=== PATIENT | female | born 1950 | race Caucasian/White ===

== ENCOUNTER 2022-07-04 10:39 | Inpatient (IN) | payer MEDICARE ==
[~2022-07-04] VITALS: Ht 149.9 cm; Wt 124.0 kg
[2022-07-04 13:57] VITALS: BP 139/65
[2022-07-04] MEDS ORDERED: GLUCOSE 4GM CHEW TABLET PO PRN (14:15)
[2022-07-04] MEDS ORDERED: GLUCAGON INJ 1MG VIAL SC PRN (14:15)
[2022-07-04] MEDS ORDERED: DEXTROSE 50% 50ML SYRINGE IV PRN (14:15)
[2022-07-04 14:47] LABS: HEMATOCRIT 33.6 % (36.0-47.0); HEMOGLOBIN 10.7 g/dl (12.0-15.5); MEAN CORPUSCULAR HEMOGLOBIN 31.3 pg (27.0-33.0); MEAN CORPUSCULAR HGB CONC 31.8 g/dl (32.0-36.5); MEAN CORPUSCULAR VOLUME 98.2 fl (80.0-96.0); PLATELET COUNT, AUTOMATED 194 10^3/uL (150-450); RED BLOOD COUNT 3.42 10^6/uL (4.00-5.40)
[2022-07-04 14:56] LABS: WHITE BLOOD COUNT 31.2 10^3/uL (4.0-10.0)
[2022-07-04 15:00] LABS: INR 1.2; PROTHROMBIN TIME 15.5 SECONDS (12.5-14.5)
[2022-07-04] MEDS ORDERED: OMEP-173 PO (15:09)
[2022-07-04] MEDS ORDERED: GLIP5TAB20 PO (15:09)
[2022-07-04] MEDS ORDERED: MESA0.37 PO (15:09)
[2022-07-04] MEDS ORDERED: LOSA100T45 PO (15:09)
[2022-07-04] MEDS ORDERED: LEVOTAB10 PO (15:09)
[2022-07-04] MEDS ORDERED: FURO40TA2 PO (15:09)
[2022-07-04] MEDS ORDERED: NAPR-885 PO (15:09)
[2022-07-04] MEDS ORDERED: METO1TAB7 PO (15:09)
[2022-07-04] MEDS ORDERED: FLUTISP NARES (15:09)
[2022-07-04 15:10] LABS: ALBUMIN 2.7 G/DL (3.2-5.2); ALKALINE PHOSPHATASE 57 U/L (46-116); ALT/SGPT 37 U/L (7.0-40); AST/SGOT 27 U/L (<34); BILIRUBIN,TOTAL 0.4 MG/DL (0.3-1.2); BLOOD UREA NITROGEN 22 MG/DL (9-23); CARBON DIOXIDE LEVEL 23 MMOL/L (20-31); CHLORIDE LEVEL 106 MMOL/L (98-107); CREATININE FOR GFR 0.86 MG/DL (0.55-1.30); GLOMERULAR FILTRATION RATE > 60.0 (>39); GLUCOSE, FASTING 281 MG/DL (74-106); POTASSIUM SERUM 4.1 MMOL/L (3.5-5.1); SODIUM LEVEL 143 MMOL/L (136-145); TOTAL PROTEIN 5.5 G/DL (5.7-8.2)
[2022-07-04] MEDS ORDERED: D3 H10002 PO (15:11)
[2022-07-04] MEDS ORDERED: ASCO500T PO (15:11)
[2022-07-04] MEDS ORDERED: VENTAER INH (15:11)
[2022-07-04] MEDS ORDERED: HOME MED LIST COMPLETE! XX SCH (15:15)
[2022-07-04 15:26] LABS: LYMPHOCYTES 2 % (16-44); METAMYELOCYTES 4 % (0-0); MONOCYTES 3 % (0-5); MYELOCYTES 1 % (0-0); NEUTROPHILS 76 % (28-66); PLATELET ESTIMATE NORMAL (NORMAL)
[2022-07-04] MEDS ORDERED: LIDOCAINE 2% 100MG/5ML SDV (FOR ANES.) As Ordered ONE (15:54)
[2022-07-04] MEDS ORDERED: propofoL 200 MG/20 ML VIAL As Ordered ONE (15:54)
[2022-07-04] MEDS ORDERED: LR 1,000 ML IV ONE ×2 (16:10→21:30)
[2022-07-04] MEDS ORDERED: ALBUTEROL 90 MCG/ACT 8GM HFA INHALER INH PRN (16:20)
[2022-07-04] MEDS ORDERED: FLUTICASONE PROP 0.05% NASAL SPRAY 16 GM (FLONASE) NARES PRN (16:20)
[2022-07-04] MEDS: LOSARTAN 50MG TABLET PO SCH (16:57)
[2022-07-04] MEDS: OMEPRAZOLE 20MG CAP PO SCH (16:58)
[2022-07-04] MEDS: METOPROLOL SUCC (TopROL XL) 50MG **XL** TAB PO SCH (16:58)
[2022-07-04] MEDS: INSULIN LISPRO (NovoLOG) PER UNIT SC SCH ×2 (16:58→20:55)
[2022-07-04] MEDS: LR 1,000 ML IV SCH (17:02)
[2022-07-04] MEDS ORDERED: MIDAZOLAM INJ 2MG/2ML VIAL As Ordered ONE (17:41)
[2022-07-04] MEDS ORDERED: fentaNYL 100 MCG/2 ML INJECTION As Ordered ONE (17:41)
[2022-07-04] MEDS ORDERED: ISOVUE-300 61% 100ML VIAL As Ordered ONE (17:42)
[2022-07-04] MEDS ORDERED: fentaNYL 100 MCG/2 ML INJECTION IV PRN (18:45)
[2022-07-04] MEDS ORDERED: HYDROMORPHONE HCL 0.5 MG/ 0.5 ML SYRINGE IV PRN (18:45)
[2022-07-04] MEDS ORDERED: ONDANSETRON 4MG 2ML VIAL IV PRN (18:45)
[2022-07-04] MEDS ORDERED: oxyCODONE 5MG TAB PO PRN (18:45)
[2022-07-04 19:45] VITALS: BP 134/61
[2022-07-04 20:15] VITALS: BP 136/61
[2022-07-04] MEDS: RIVAROXABAN 10MG TAB (XARELTO) PO SCH (20:55)
[2022-07-04] MEDS: ALBUTEROL SULFATE 2.5MG/0.5ML INH NEB SOLN NEB PRN (21:12)
[2022-07-04 21:15] VITALS: BP 131/61
[2022-07-04 22:15] VITALS: BP 130/61
[2022-07-04 23:15] VITALS: BP 132/60
[2022-07-05 00:15] VITALS: BP 134/63
[2022-07-05] MEDS ORDERED: LACTATED RINGER'S 1000 ML IV ONE (01:25)
[2022-07-05] MEDS: LR 1,000 ML IV SCH (02:40)
[2022-07-05] MEDS: ALBUTEROL SULFATE 2.5MG/0.5ML INH NEB SOLN NEB PRN ×2 (02:49→08:10)
[2022-07-05] MEDS ORDERED: carisoprodoL 350 MG TAB PO PRN (02:50)
[2022-07-05] MEDS ORDERED: oxyCODONE 5MG TAB PO PRN (02:55)
[2022-07-05] MEDS ORDERED: KETOROLAC 30 MG/ML 1ML VIAL IV ONE (03:00)
[2022-07-05 05:51] LABS: HEMATOCRIT 32.3 % (36.0-47.0); HEMOGLOBIN 10.1 g/dl (12.0-15.5); MEAN CORPUSCULAR HEMOGLOBIN 31.2 pg (27.0-33.0); MEAN CORPUSCULAR HGB CONC 31.3 g/dl (32.0-36.5); MEAN CORPUSCULAR VOLUME 99.7 fl (80.0-96.0); RED BLOOD COUNT 3.24 10^6/uL (4.00-5.40); WHITE BLOOD COUNT 26.6 10^3/uL (4.0-10.0)
[2022-07-05 06:00] VITALS: BP 156/67
[2022-07-05 06:17] LABS: BLOOD UREA NITROGEN 29 MG/DL (9-23); CALCIUM LEVEL 7.3 MG/DL (8.3-10.6); CARBON DIOXIDE LEVEL 24 MMOL/L (20-31); CHLORIDE LEVEL 106 MMOL/L (98-107); CREATININE FOR GFR 0.93 MG/DL (0.55-1.30); GLOMERULAR FILTRATION RATE > 60.0 (>39); GLUCOSE, FASTING 193 MG/DL (74-106); POTASSIUM SERUM 4.6 MMOL/L (3.5-5.1); SODIUM LEVEL 139 MMOL/L (136-145)
[2022-07-05 07:43] LABS: PLATELET COUNT, AUTOMATED 124 10^3/uL (150-450)
[2022-07-05] MEDS ORDERED: ENOXAPARIN 40MG/0.4ML SYRINGE (J1650 PER 10MG) SC SCH (09:00)
[2022-07-05] MEDS: LIDOCAINE 5% (LIDODERM) PATCH TD SCH (09:00)
[2022-07-05] MEDS: OMEPRAZOLE 20MG CAP PO SCH (09:36)
[2022-07-05] MEDS: INSULIN LISPRO (NovoLOG) PER UNIT SC SCH ×4 (09:37→21:18)
[2022-07-05] MEDS: cefTRIAXone SOD 2 GM in D5W MINI-BAG PLUS 50 ML IV SCH (09:37)
[2022-07-05] MEDS: METOPROLOL SUCC (TopROL XL) 50MG **XL** TAB PO SCH (09:38)
[2022-07-05] MEDS: LOSARTAN 50MG TABLET PO SCH (09:38)
[2022-07-05] MEDS ORDERED: IPRATROPIUM 0.5MG/ALBUTEROL 2.5MG INH SOL UD 3ML (DUONEB) NEB PRN (10:40)
[2022-07-05] MEDS ORDERED: FUROSEMIDE 40MG/4ML VIAL IV ONE (11:00)
[2022-07-05] MEDS: predniSONE 20 MG TAB PO SCH (11:25)
[2022-07-05 12:00] VITALS: BP 172/83
[2022-07-05] MEDS: IPRATROPIUM 0.5MG/ALBUTEROL 2.5MG INH SOL UD 3ML (DUONEB) NEB SCH ×2 (13:22→19:07)
[2022-07-05 20:23] VITALS: BP 174/80
[2022-07-05] MEDS ORDERED: **hydrALAZINE** 10 MG TAB PO ONE (20:35)
[2022-07-05] MEDS: RIVAROXABAN 10MG TAB (XARELTO) PO SCH (21:18)
[2022-07-06] MEDS: IPRATROPIUM 0.5MG/ALBUTEROL 2.5MG INH SOL UD 3ML (DUONEB) NEB SCH ×5 (01:41→23:51)
[2022-07-06 06:23] LABS: HEMOGLOBIN 9.8 g/dl (12.0-15.5); MEAN CORPUSCULAR HEMOGLOBIN 31.5 pg (27.0-33.0); MEAN CORPUSCULAR HGB CONC 31.6 g/dl (32.0-36.5); MEAN CORPUSCULAR VOLUME 99.7 fl (80.0-96.0); PLATELET COUNT, AUTOMATED 186 10^3/uL (150-450); RED BLOOD COUNT 3.11 10^6/uL (4.00-5.40); WHITE BLOOD COUNT 24.1 10^3/uL (4.0-10.0)
[2022-07-06 06:54] LABS: BLOOD UREA NITROGEN 37 MG/DL (9-23); CARBON DIOXIDE LEVEL 28 MMOL/L (20-31); CHLORIDE LEVEL 104 MMOL/L (98-107); CREATININE FOR GFR 0.68 MG/DL (0.55-1.30); GLOMERULAR FILTRATION RATE > 60.0 (>39); GLUCOSE, FASTING 173 MG/DL (74-106); MAGNESIUM LEVEL 1.8 MG/DL (1.8-2.4); POTASSIUM SERUM 4.7 MMOL/L (3.5-5.1); SODIUM LEVEL 140 MMOL/L (136-145)
[2022-07-06 07:00] VITALS: BP 138/72
[2022-07-06] MEDS: cefTRIAXone SOD 2 GM in D5W MINI-BAG PLUS 50 ML IV SCH (07:59)
[2022-07-06 08:00] VITALS: BP 138/72
[2022-07-06] MEDS: METOPROLOL SUCC (TopROL XL) 50MG **XL** TAB PO SCH (08:00)
[2022-07-06] MEDS: INSULIN LISPRO (NovoLOG) PER UNIT SC SCH ×4 (08:00→20:24)
[2022-07-06] MEDS: OMEPRAZOLE 20MG CAP PO SCH (08:00)
[2022-07-06] MEDS: LOSARTAN 50MG TABLET PO SCH (08:01)
[2022-07-06] MEDS: predniSONE 20 MG TAB PO SCH (08:01)
[2022-07-06] MEDS: LIDOCAINE 5% (LIDODERM) PATCH TD SCH (08:02)
[2022-07-06] MEDS ORDERED: FUROSEMIDE 40 MG TAB PO SCH (09:00)
[2022-07-06] MEDS ORDERED: FUROSEMIDE 40MG/4ML VIAL IV ONE (11:00)
[2022-07-06] MEDS ORDERED: methylPREDNISolone 125MG 2ML VIAL IV ONE (11:00)
[2022-07-06 14:00] VITALS: BP 164/79
[2022-07-06 20:00] VITALS: BP 179/77
[2022-07-06] MEDS: methylPREDNISolone 40MG 1ML VIAL IV SCH (20:23)
[2022-07-06] MEDS: RIVAROXABAN 10MG TAB (XARELTO) PO SCH (20:23)
[2022-07-07] MEDS: methylPREDNISolone 40MG 1ML VIAL IV SCH ×4 (02:00→20:14)
[2022-07-07] MEDS: IPRATROPIUM 0.5MG/ALBUTEROL 2.5MG INH SOL UD 3ML (DUONEB) NEB SCH ×5 (03:19→19:56)
[2022-07-07 05:58] LABS: HEMATOCRIT 33.8 % (36.0-47.0); HEMOGLOBIN 10.6 g/dl (12.0-15.5); MEAN CORPUSCULAR HEMOGLOBIN 30.5 pg (27.0-33.0); MEAN CORPUSCULAR HGB CONC 31.4 g/dl (32.0-36.5); MEAN CORPUSCULAR VOLUME 97.4 fl (80.0-96.0); PLATELET COUNT, AUTOMATED 211 10^3/uL (150-450); RED BLOOD COUNT 3.47 10^6/uL (4.00-5.40); WHITE BLOOD COUNT 15.2 10^3/uL (4.0-10.0)
[2022-07-07 06:00] VITALS: BP 149/65
[2022-07-07] MEDS: LIDOCAINE 5% (LIDODERM) PATCH TD SCH (09:00)
[2022-07-07 09:03] LABS: BLOOD UREA NITROGEN 29 MG/DL (9-23); CALCIUM LEVEL 8.3 MG/DL (8.3-10.6); CARBON DIOXIDE LEVEL 30 MMOL/L (20-31); CHLORIDE LEVEL 101 MMOL/L (98-107); GLOMERULAR FILTRATION RATE > 60.0 (>39); GLUCOSE, FASTING 254 MG/DL (74-106); POTASSIUM SERUM 4.7 MMOL/L (3.5-5.1); SODIUM LEVEL 137 MMOL/L (136-145)
[2022-07-07] MEDS: INSULIN LISPRO (NovoLOG) PER UNIT SC SCH ×4 (09:21→20:15)
[2022-07-07] MEDS: cefTRIAXone SOD 2 GM in D5W MINI-BAG PLUS 50 ML IV SCH (09:22)
[2022-07-07] MEDS: OMEPRAZOLE 20MG CAP PO SCH (09:23)
[2022-07-07] MEDS: LOSARTAN 50MG TABLET PO SCH (09:23)
[2022-07-07] MEDS: METOPROLOL SUCC (TopROL XL) 50MG **XL** TAB PO SCH (09:23)
[2022-07-07] MEDS: TORSEMIDE 20 MG TAB PO SCH (09:24)
[2022-07-07 14:00] VITALS: BP 150/58
[2022-07-07] MEDS: RIVAROXABAN 10MG TAB (XARELTO) PO SCH (20:14)
[2022-07-07 22:00] VITALS: BP 142/78
[2022-07-08] MEDS: IPRATROPIUM 0.5MG/ALBUTEROL 2.5MG INH SOL UD 3ML (DUONEB) NEB SCH ×5 (00:26→15:21)
[2022-07-08] MEDS: methylPREDNISolone 40MG 1ML VIAL IV SCH ×3 (01:21→14:00)
[2022-07-08 06:00] VITALS: BP 138/72
[2022-07-08 06:20] LABS: HEMOGLOBIN 11.1 g/dl (12.0-15.5); MEAN CORPUSCULAR HEMOGLOBIN 30.8 pg (27.0-33.0); MEAN CORPUSCULAR HGB CONC 31.7 g/dl (32.0-36.5); MEAN CORPUSCULAR VOLUME 97.2 fl (80.0-96.0); PLATELET COUNT, AUTOMATED 236 10^3/uL (150-450); WHITE BLOOD COUNT 15.7 10^3/uL (4.0-10.0)
[2022-07-08 06:47] LABS: BLOOD UREA NITROGEN 34 MG/DL (9-23); CALCIUM LEVEL 8.7 MG/DL (8.3-10.6); CARBON DIOXIDE LEVEL 32 MMOL/L (20-31); CHLORIDE LEVEL 98 MMOL/L (98-107); CREATININE FOR GFR 0.62 MG/DL (0.55-1.30); GLOMERULAR FILTRATION RATE > 60.0 (>39); GLUCOSE, FASTING 293 MG/DL (74-106); POTASSIUM SERUM 4.5 MMOL/L (3.5-5.1); SODIUM LEVEL 137 MMOL/L (136-145)
[2022-07-08 07:00] VITALS: BP 160/80
[2022-07-08] MEDS: INSULIN LISPRO (NovoLOG) PER UNIT SC SCH ×2 (08:13→12:43)
[2022-07-08] MEDS: OMEPRAZOLE 20MG CAP PO SCH (08:13)
[2022-07-08 08:15] VITALS: BP 160/72
[2022-07-08] MEDS: METOPROLOL SUCC (TopROL XL) 50MG **XL** TAB PO SCH (08:15)
[2022-07-08] MEDS: LOSARTAN 50MG TABLET PO SCH (08:15)
[2022-07-08] MEDS: TORSEMIDE 20 MG TAB PO SCH (08:16)
[2022-07-08] MEDS: LIDOCAINE 5% (LIDODERM) PATCH TD SCH (08:17)
[2022-07-08] MEDS: cefTRIAXone SOD 2 GM in D5W MINI-BAG PLUS 50 ML IV SCH (08:24)
[2022-07-08] MEDS ORDERED: CEFD300CAP PO (10:53)
[2022-07-08] MEDS ORDERED: TORS20TA2 PO (10:53)
[2022-07-08] MEDS ORDERED: PRED10TA2 PO (10:53)
[2022-07-08] MEDS ORDERED: SYMB16INH INH (10:53)
[2022-07-08 11:21] VITALS: BP 124/70
[2022-07-08 14:00] VITALS: BP 135/69
[2022-07-08] MEDS ORDERED: CEFD300C41 PO (16:03)
== END 2022-07-08 17:20 | disposition home or self-care (01) | DRG 854 ==
LOC: M MS5PR 13:43
PROVIDERS: ADMIT General Practice; ATTEND Internal Medicine
PROC: 0T778DZ Dilation of Left Ureter with Intraluminal Device, Via Natural or Artificial Opening Endoscopic (ICD-10-PCS; principal; 2022-07-04 17:00)
DX: A41.51 Sepsis due to Escherichia coli [E. coli] (principal); N13.6 Pyonephrosis; K51.90 Ulcerative colitis, unspecified, without complications; E87.20 Acidosis, unspecified; N39.0 Urinary tract infection, site not specified; J45.21 Mild intermittent asthma with (acute) exacerbation; E11.9 Type 2 diabetes mellitus without complications; I10 Essential (primary) hypertension; E78.5 Hyperlipidemia, unspecified; G47.33 Obstructive sleep apnea (adult) (pediatric); E87.70 Fluid overload, unspecified; I89.0 Lymphedema, not elsewhere classified; R65.20 Severe sepsis without septic shock; K21.9 Gastro-esophageal reflux disease without esophagitis; Z79.84 Long term (current) use of oral hypoglycemic drugs; Z79.899 Other long term (current) drug therapy; Z88.0 Allergy status to penicillin; Z88.5 Allergy status to narcotic agent; Z88.8 Allergy status to other drugs, medicaments and biological substances; Z91.013 Allergy to seafood; Z85.44 Personal history of malignant neoplasm of other female genital organs; Z90.710 Acquired absence of both cervix and uterus